=== PATIENT | female | born 1975 | race African-American/Black ===

== ENCOUNTER 2020-03-06 16:53 | Inpatient (IN) | payer OTHER ==
[2020-03-06 17:14] VITALS: BMI 40.2
[2020-03-07 00:01] LABS: INR 1.1 (0.83-1.09)
[2020-03-07 00:26] LABS: ALBUMIN 2.9 g/dl (3.4-5.0); BILIRUBIN,TOTAL 0.3 mg/dL (0.2-1); BLOOD UREA NITROGEN 11.8 mg/dL (7-18); CALCIUM 8.6 mg/dL (8.5-10.1); CREATININE 0.6 mg/dL (0.55-1.3); POTASSIUM 3.8 mmol/L (3.5-5.1); TOT PROT 7.5 g/dl (6.4-8.2)
[2020-03-07 00:43] LABS: BASO % 0.5 % (0-2.0); EOS % 1.7 % (0-4.5); HEMATOCRIT 24.8 % (32.4-45.2); LYMPH % 16.9 % (8-40); MCHC 27.8 g/dl (32.0-36.0); MEAN PLT VOLUME 8.7 fl (7.5-11.1); MONO % 9.7 % (3.8-10.2); NEUT % 71.2 % (42.8-82.8); PLATELET COUNT 313 K/MM3 (134-434); RBC 3.95 M/mm3 (3.60-5.2); RDW 21.2 % (11.6-15.6); WHITE BLOOD COUNT 11.7 K/mm3 (4.0-10.0)
[2020-03-07 00:47] LABS: MCH 17.5 pg (25.7-33.7)
[2020-03-07 00:53] LABS: HEMOGLOBIN 6.9 GM/dL (10.7-15.3)
[2020-03-07 00:55] LABS: MEAN CELL VOLUME 62.9 fl (80-96)
[2020-03-07 02:21] LABS: ADD RBC MORPHOLOGY YES
[2020-03-07 02:23] LABS: ANISOCYTOSIS 2+
[2020-03-07 02:24] LABS: TEAR DROP CELLS OCCASIONAL
[2020-03-07 02:25] LABS: OVALOCYTE OCCASIONAL; PLATELET ESTIMATE ADEQUATE
[2020-03-07] MEDS ORDERED: carBAMazepine 200 MG/10 ML UNIT-DOSE CUP PO SCH (03:25)
[2020-03-07] MEDS ORDERED: ALBUTEROL SO4 2.5/IPRATROPIUM 0.5 INH SOL 3 ML VIAL.NEB. NEB PRN (03:28)
[2020-03-07] MEDS ORDERED: ENOXAPARIN NA (PORCINE) 100 MG/1 ML DISP.SYRIN SQ ONE ×2 (04:35→09:10)
[2020-03-07] MEDS: carBAMazepine 100 MG/5 ML UNIT-DOSE CUP PO SCH ×2 (05:20→22:24)
[2020-03-07] MEDS: ENOXAPARIN NA (PORCINE) 100 MG/1 ML DISP.SYRIN SQ SCH ×3 (05:20→22:24)
[2020-03-07] MEDS ORDERED: BUDESONIDE 0.5 MG/2 ML INH SUSP VIAL NEB SCH (07:00)
[2020-03-07] MEDS ORDERED: PT OWN MED DRAWER 7, Y5N ONE (08:39)
[2020-03-07] MEDS ORDERED: IPRATROPIUM BR 0.02% 0.5 MG/2.5 ML VIAL.NEB. NEB PRN (12:05)
[2020-03-07] MEDS ORDERED: ALBUTEROL SO4 0.083% IH SOL 2.5 MG/3 ML VIAL.NEB. NEB PRN (12:05)
[2020-03-07] MEDS ORDERED: ACETAMINOPHEN INJECTION 100 ML IVPB ONE (13:59)
[2020-03-07] MEDS: ACETAMINOPHEN 1000 MG/100 ML VIAL (NON FORMULARY) IVPB PRN (14:12)
[2020-03-07 20:52] LABS: HEMATOCRIT 32.5 % (32.4-45.2); HEMOGLOBIN 9.8 GM/dL (10.7-15.3); MCH 20.5 pg (25.7-33.7); MCHC 30.3 g/dl (32.0-36.0); MEAN CELL VOLUME 67.5 fl (80-96); MEAN PLT VOLUME 8.7 fl (7.5-11.1); PLATELET COUNT 296 K/MM3 (134-434); RBC 4.82 M/mm3 (3.60-5.2); RDW 25.1 % (11.6-15.6); WHITE BLOOD COUNT 13.2 K/mm3 (4.0-10.0)
[2020-03-07] MEDS ORDERED: MONTELUKAST NA 10 MG TABLET PO SCH (22:00)
[2020-03-08] MEDS ORDERED: IRON SUCROSE INJECTION 200 MG in SODIUM CHLORIDE 90 ML IVPB ONE (10:30)
[2020-03-08] MEDS: ACETAMINOPHEN 1000 MG/100 ML VIAL (NON FORMULARY) IVPB PRN (10:35)
[2020-03-08] MEDS: ENOXAPARIN NA (PORCINE) 100 MG/1 ML DISP.SYRIN SQ SCH (10:51)
[2020-03-08 12:00] LABS: BASO % 0.4 % (0-2.0); EOS % 4.5 % (0-4.5); HEMATOCRIT 32.9 % (32.4-45.2); HEMOGLOBIN 9.8 GM/dL (10.7-15.3); LYMPH % 14.7 % (8-40); MCH 20.2 pg (25.7-33.7); MCHC 29.8 g/dl (32.0-36.0); MEAN CELL VOLUME 67.8 fl (80-96); MEAN PLT VOLUME 8.7 fl (7.5-11.1); MONO % 12.2 % (3.8-10.2); NEUT % 68.2 % (42.8-82.8); PLATELET COUNT 348 K/MM3 (134-434); RBC 4.85 M/mm3 (3.60-5.2); RDW 24.2 % (11.6-15.6); WHITE BLOOD COUNT 13.9 K/mm3 (4.0-10.0)
[2020-03-08 12:25] LABS: BILIRUBIN,TOTAL 0.4 mg/dL (0.2-1); BLOOD UREA NITROGEN 8.5 mg/dL (7-18); CALCIUM 8.5 mg/dL (8.5-10.1); CREATININE 0.7 mg/dL (0.55-1.3); MAGNESIUM 2.3 mg/dL (1.8-2.4); PHOSPHOROUS 2.2 mg/dL (2.5-4.9); POTASSIUM 3.4 mmol/L (3.5-5.1); TOT PROT 7.8 g/dl (6.4-8.2)
[2020-03-08] MEDS ORDERED: NAPH,MB-DB/K PH,MBDB POWDER PACKET PO ONE (13:18)
[2020-03-08] MEDS ORDERED: POTASSIUM CHLORIDE ORAL LIQUID 20 MEQ/15 ML PO ONE (13:18)
[2020-03-08] MEDS ORDERED: ACETAMINOPHEN 325 MG TABLET (FP) PO PRN (14:24)
[2020-03-08 15:56] VITALS: BP 120/69; PULSE 102; TEMP 98
== END 2020-03-08 19:02 | disposition home or self-care (01) | DRG 812 ==
LOC: JER 16:53 → JERBED 21:40 → J6WEST-2 03-07 17:28
PROVIDERS: ADMIT Internal Medicine; ATTEND Internal Medicine
PROC: 30233N1 Transfusion of Nonautologous Red Blood Cells into Peripheral Vein, Percutaneous Approach (ICD-10-PCS; principal; 2020-03-07)
DX: D50.9 Iron deficiency anemia, unspecified (principal); I82.411 Acute embolism and thrombosis of right femoral vein; N92.0 Excessive and frequent menstruation with regular cycle; G80.9 Cerebral palsy, unspecified; F79 Unspecified intellectual disabilities; J45.909 Unspecified asthma, uncomplicated; R56.9 Unspecified convulsions
CPT/HCPCS: 36415; 36430; 71045-TC-FY; 72170-TC-FY; 73552-TC-LT-FY; 73552-TC-RT-FY; 73590-TC-LT-FY; 73590-TC-RT-FY; 73610-TC-LT-FY; 73610-TC-RT-FY; 73630-TC-LT; 73630-TC-RT-FY; 80053; 82272; 82728; 83540; 83550; 83735; 84100; 85025; 85027; 85610; 85730; 86850; 86900; 86901; 86922; 93005; 93010; 93970-TC; 94640; 99285-25; J0131; J1756; P9058; U0003